=== PATIENT | male | born 1950 | race Caucasian/White ===

== ENCOUNTER 2018-09-01 20:06 | Emergency (ER) | payer MEDICARE, BC ==
[~2018-09-01] VITALS: Ht 167.6 cm; Wt 80.9 kg
[~2018-09-01 20:06] MED LIST: CENTRUM SILVER1 TA3 PO; CORDARONE200 MG/TAB PO; FLOVENT 44MCG I13 GM IH; GLUCOPHAGE XR500 M1 PO; LANOXIN 0.25M0.25 MG PO; MAREPA1200 MG PO; PROSCAR 5MG5 MG PO; PROVENTIL0.09 MG/A1 IH; SINGULAIR 110 MG/TAB PO; VASOTEC 10M10 MG/TAB PO; ZOCOR5 MG PO
[2018-09-01 20:11] VITALS: TEMP 97.6
[2018-09-01 21:32] LABS: BASO % 0.4 % (0.0-2.0); EOS # 0.1 (0.0-0.7); EOS % 0.9 % (0-4.0); GRAN # 5.3 (1.4-6.5); GRAN % 66.9 % (42.2-75.2); HEMOGLOBIN 11.1 g/dl (13.5-18.0); LYMPH # 1.6 (1.2-3.4); LYMPH % 19.9 % (20.0-51.0); MEAN CELL VOLUME 91 fl (80.0-100.0); MEAN CORPUSCULAR HEMOGLOBIN 28 pg (27.0-31.0); MEAN CORPUSCULAR HGB CONC 31 g/dl (33.0-37.0); MEAN PLATELET VOLUME 9.6 fl (7.4-10.4); MONO # 0.9 (0.1-0.6); MONO % 11.6 % (1.7-9.3); PLATELET COUNT 222 K/mm3 (130-400); RED BLOOD COUNT 3.91 M/mm3 (4.20-5.60); REDCELL DISTRIBUTION WIDTH-CV 14.6 % (11.5-14.5)
[2018-09-01 21:33] LABS: HEMATOCRIT 35.4 % (42.0-52.0)
[2018-09-01 21:37] LABS: INR 1.5 (0.8-3.0); PROTHROMBIN TIME 16.8 SECONDS (9.7-12.8)
[2018-09-01 21:46] LABS: ALBUMIN 3.9 gm/dL (3.5-5.0); BILIRUBIN,TOTAL 1.7 mg/dL (0.0-1.0); CALCIUM 8.8 mg/dL (8.4-10.2); CREATININE, serum 1.24 mg/dL (0.66-1.25); POTASSIUM 4.8 mmol/L (3.4-5.0); TOTAL PROTEIN 6.6 gm/dL (6.4-8.2)
[2018-09-01 22:12] LABS: TROPONIN-I 0.04 ng/mL (0.000-0.035)
[2018-09-01] MEDS ORDERED: COZAAR 50MG50 MG/TAB PO (22:50)
[2018-09-01 23:50] VITALS: BP 122/88; PULSE 83
== END 2018-09-01 23:50 | disposition short-term general hospital (02) ==
LOC: COL.ER 20:06
PROVIDERS: Emergency Medicine
DX: I11.0 Hypertensive heart disease with heart failure (principal); I50.9 Heart failure, unspecified; R79.89 Other specified abnormal findings of blood chemistry; I25.10 Atherosclerotic heart disease of native coronary artery without angina pectoris; I25.2 Old myocardial infarction; E11.9 Type 2 diabetes mellitus without complications; J44.9 Chronic obstructive pulmonary disease, unspecified; E78.5 Hyperlipidemia, unspecified; Z79.84 Long term (current) use of oral hypoglycemic drugs; Z95.0 Presence of cardiac pacemaker
CPT/HCPCS: J1940; J2270

== ENCOUNTER → 2018-12-25 | Outpatient (CLI) | payer MEDICARE, BC ==
[~2018-12-25] MED LIST changes: +COZAAR 50MG50 MG/TAB PO
[2018-12-25 15:38] LABS: PROTHROMBIN TIME 23.5 SECONDS (9.7-12.8)
[2018-12-25 15:46] LABS: CALCIUM 8.9 mg/dL (8.4-10.2); CREATININE, serum 1.3 (0.66-1.25)
[2018-12-25 15:55] LABS: POTASSIUM 6.3 mmol/L (3.4-5.0)
== END ==
LOC: COL.LAB 14:43
DX: Z95.811 Presence of heart assist device (principal)

== ENCOUNTER → 2019-02-08 | Outpatient (CLI) | payer MEDICARE, BC | LOC: COL.VAS 12:31 | DX: M79.89 Other specified soft tissue disorders (principal) ==

== ENCOUNTER 2019-02-12 15:33 | Outpatient (RCR) | payer MEDICARE, BC | END 2019-02-13 | disposition still patient (30) | LOC: COL.CR | DX: Z48.812 Encounter for surgical aftercare following surgery on the circulatory system (principal); Z95.811 Presence of heart assist device; I50.42 Chronic combined systolic (congestive) and diastolic (congestive) heart failure ==

== ENCOUNTER 2019-03-09 14:59 | Outpatient (RCR) | payer MEDICARE, BC ==
[~2019-03-09 14:59] MED LIST changes: -MAREPA1200 MG PO; +MASON NATURAL1200 MG PO
== END 2019-05-17 | disposition home or self-care (01) ==
LOC: COL.CR
DX: Z48.812 Encounter for surgical aftercare following surgery on the circulatory system (principal); Z95.811 Presence of heart assist device

== ENCOUNTER 2019-05-22 09:00 | Outpatient (RCR) | payer MEDICARE, BC ==
[2019-05-01 11:31] VITALS: BP 93/74; PULSE 70; TEMP 97.8
[2019-05-08 09:10] VITALS: BP 89/50; PULSE 62; TEMP 97.8
[2019-05-15 09:22] VITALS: PULSE 78; TEMP 97.8
[~2019-05-22] VITALS: Ht 167.6 cm; Wt 75.0 kg
[2019-05-22 09:30] VITALS: PULSE 83; TEMP 97.7
[2019-05-22] MEDS ORDERED: NORVASC 10MG10 MG PO (09:44)
[2019-05-22] MEDS ORDERED: ASPI325T6 PO (09:45)
[2019-05-22] MEDS ORDERED: LIPITOR 10MG10 MG PO (09:46)
[2019-05-22] MEDS ORDERED: COREG 3.123.125 MG/T PO (09:47)
[2019-05-22] MEDS ORDERED: APRESOLINE 25MG25 MG PO (09:50)
[2019-05-22] MEDS ORDERED: MAG-OX 400400 MG/TAB PO (09:51)
[2019-05-22] MEDS ORDERED: MEXITIL 150MG150 MG PO (09:53)
[2019-05-22] MEDS ORDERED: PROTONIX 40MG T40 MG PO (09:55)
[2019-05-22] MEDS ORDERED: PROZAC 10MG10 MG PO (09:56)
[2019-05-22] MEDS ORDERED: COUMADIN 6MG6 MG/TAB PO (10:01)
== END 2019-05-22 11:36 | disposition home or self-care (01) ==
LOC: EUO 09:00
DX: Z79.899 Other long term (current) drug therapy (principal)
CPT/HCPCS: J2916

== ENCOUNTER 2019-06-25 15:09 | Outpatient (RCR) | payer SELFPAY ==
[~2019-06-25 15:09] MED LIST changes: +APRESOLINE 25MG25 MG PO; +ASPI325T6 PO; +COREG 3.123.125 MG/T PO; +COUMADIN 6MG6 MG/TAB PO; +LIPITOR 10MG10 MG PO; +MAG-OX 400400 MG/TAB PO; +MEXITIL 150MG150 MG PO; +NORVASC 10MG10 MG PO; +PROTONIX 40MG T40 MG PO; +PROZAC 10MG10 MG PO
== END 2019-06-26 | disposition home or self-care (01) ==
LOC: COL.CR
DX: Z02.89 Encounter for other administrative examinations (principal)

== ENCOUNTER → 2019-10-19 | Outpatient (CLI) | payer MEDICARE, BC ==
[2019-10-19 16:33] LABS: BASO % 0.5 % (0.0-2.0); EOS # 0.3 (0.0-0.7); EOS % 4.8 % (0-4.0); GRAN # 3.7 (1.4-6.5); GRAN % 62.5 % (42.2-75.2); HEMATOCRIT 39.6 % (42.0-52.0); HEMOGLOBIN 12.9 g/dl (13.5-18.0); LYMPH # 1.2 (1.2-3.4); LYMPH % 20.2 % (20.0-51.0); MEAN CELL VOLUME 93 fl (80.0-100.0); MEAN CORPUSCULAR HEMOGLOBIN 30 pg (27.0-31.0); MEAN CORPUSCULAR HGB CONC 33 g/dl (33.0-37.0); MEAN PLATELET VOLUME 9.1 fl (7.4-10.4); MONO # 0.7 (0.1-0.6); MONO % 11.7 % (1.7-9.3); PLATELET COUNT 162 K/mm3 (130-400); RED BLOOD COUNT 4.27 M/mm3 (4.20-5.60); REDCELL DISTRIBUTION WIDTH-CV 13.5 % (11.5-14.5)
[2019-10-19 16:35] LABS: INR 2.4 (0.8-3.0); PROTHROMBIN TIME 28.4 SECONDS (9.7-12.8)
[2019-10-19 16:42] LABS: CALCIUM 9.3 mg/dL (8.4-10.2); CREATININE, serum 0.81 (0.66-1.25); MAGNESIUM 2.1 mg/dL (1.6-2.3); POTASSIUM 4.7 mmol/L (3.4-5.0)
== END ==
LOC: COL.LAB 15:54
DX: Z95.811 Presence of heart assist device (principal)

== ENCOUNTER → 2020-01-14 | Outpatient (CLI) | payer MEDICARE, BC ==
[2020-01-14 13:41] LABS: BASO % 0.5 % (0.0-2.0); EOS # 0.3 (0.0-0.7); EOS % 4.6 % (0-4.0); GRAN # 4.9 (1.4-6.5); HEMATOCRIT 43.9 % (42.0-52.0); HEMOGLOBIN 14.2 g/dl (13.5-18.0); LYMPH # 1.3 (1.2-3.4); LYMPH % 17.7 % (20.0-51.0); MEAN CELL VOLUME 92 fl (80.0-100.0); MEAN CORPUSCULAR HEMOGLOBIN 30 pg (27.0-31.0); MEAN CORPUSCULAR HGB CONC 32 g/dl (33.0-37.0); MEAN PLATELET VOLUME 8.9 fl (7.4-10.4); MONO # 0.8 (0.1-0.6); MONO % 10.9 % (1.7-9.3); PLATELET COUNT 154 K/mm3 (130-400); RED BLOOD COUNT 4.78 M/mm3 (4.20-5.60)
[2020-01-14 13:46] LABS: INR 2.5 (0.8-3.0)
[2020-01-14 13:52] LABS: CALCIUM 9.9 mg/dL (8.4-10.2); CREATININE, serum 0.94 (0.66-1.25); MAGNESIUM 2.2 mg/dL (1.6-2.3)
== END ==
LOC: COL.LAB 11:55
DX: Z95.811 Presence of heart assist device (principal)

== ENCOUNTER → 2020-03-09 | Outpatient (CLI) | payer MEDICARE, BC ==
[2020-03-09 14:20] LABS: HEMATOCRIT 43.3 % (42.0-52.0); MEAN CELL VOLUME 92 fl (80.0-100.0); MEAN CORPUSCULAR HEMOGLOBIN 30 pg (27.0-31.0); MEAN CORPUSCULAR HGB CONC 32 g/dl (33.0-37.0); MEAN PLATELET VOLUME 9.3 fl (7.4-10.4); PLATELET COUNT 158 K/mm3 (130-400); REDCELL DISTRIBUTION WIDTH-CV 13.4 % (11.5-14.5)
[2020-03-09 14:29] LABS: ALBUMIN 4.5 gm/dL (3.5-5.0); BILIRUBIN,TOTAL 0.9 mg/dL (0.0-1.0); CALCIUM 9.6 mg/dL (8.4-10.2); CREATININE, serum 0.98 (0.66-1.25); POTASSIUM 4.8 mmol/L (3.4-5.0); TOTAL PROTEIN 7.3 gm/dL (6.4-8.2)
== END ==
LOC: COL.LAB 14:00
DX: Z95.811 Presence of heart assist device (principal)

== ENCOUNTER 2020-04-09 14:51 | Outpatient (RCR) | payer SELFPAY | END 2020-04-10 | disposition home or self-care (01) | LOC: COL.CR | DX: Z02.89 Encounter for other administrative examinations (principal) ==

== ENCOUNTER 2020-06-26 16:00 | Outpatient (RCR) | payer MEDICARE, BC ==
[2020-06-16 17:29] VITALS: BP 95/72; PULSE 69; TEMP 97.7
[2020-06-19 08:00] VITALS: BP 103/72; PULSE 71; TEMP 98
[~2020-06-26] VITALS: Ht 167.6 cm; Wt 78.9 kg
--- NOTE | 2020-06-26 16:42 | NUR ---
Attempt to reach pt at phone number listed in chart, no answer and voicemail box is full.
--- NOTE | 2020-06-26 16:52 | NUR ---
[place]ifton RN at pt's PCP office contacted to inform her that pt has not shown for last 2 appts for iron infusions. She states she was told pt wished to stop infusions due to possible reaction to medication, and that he would be in contact with [facility].
== END 2020-06-26 17:08 ==
LOC: EUO 16:00
DX: D50.9 Iron deficiency anemia, unspecified (principal)
CPT/HCPCS: J2916

== ENCOUNTER → 2020-07-14 | Outpatient (RCR) | payer SELFPAY | END | disposition home or self-care (01) | LOC: COL.CR | DX: Z02.89 Encounter for other administrative examinations (principal) ==

== ENCOUNTER 2020-09-17 12:28 | Outpatient (RCR) | payer SELFPAY | END 2020-10-14 | disposition home or self-care (01) | LOC: COL.CR | DX: Z02.89 Encounter for other administrative examinations (principal) ==

== ENCOUNTER → 2020-11-26 | Outpatient (CLI) | payer MEDICARE, BC ==
[2020-11-26 11:27] LABS: BASO % 0.6 % (0.0-2.0); EOS # 0.2 (0.0-0.7); EOS % 3.6 % (0-4.0); GRAN % 73.9 % (42.2-75.2); HEMOGLOBIN 13.3 g/dl (13.5-18.0); LYMPH # 0.8 (1.2-3.4); LYMPH % 12.5 % (20.0-51.0); MEAN CELL VOLUME 95 fl (80.0-100.0); MEAN CORPUSCULAR HEMOGLOBIN 30 pg (27.0-31.0); MEAN CORPUSCULAR HGB CONC 32 g/dl (33.0-37.0); MEAN PLATELET VOLUME 8.9 fl (7.4-10.4); MONO # 0.6 (0.1-0.6); PLATELET COUNT 153 K/mm3 (130-400); RED BLOOD COUNT 4.42 M/mm3 (4.20-5.60); REDCELL DISTRIBUTION WIDTH-CV 13.3 % (11.5-14.5)
[2020-11-26 11:34] LABS: INR 2.8 (0.8-3.0); PROTHROMBIN TIME 31.9 SECONDS (9.7-12.8)
[2020-11-26 11:39] LABS: CREATININE, serum 1.09 (0.66-1.25); POTASSIUM 4.5 mmol/L (3.4-5.0)
== END ==
LOC: COL.LAB 10:49
DX: Z95.811 Presence of heart assist device (principal)

== ENCOUNTER 2021-01-14 15:58 | Outpatient (RCR) | payer SELFPAY | END 2021-01-15 | disposition home or self-care (01) | LOC: COL.CR | DX: Z02.89 Encounter for other administrative examinations (principal) ==

== ENCOUNTER → 2021-01-14 | Outpatient (CLI) | payer MEDICARE, BC | LOC: ZCOL.LAB 13:35 | DX: Z95.811 Presence of heart assist device (principal) ==

== ENCOUNTER 2021-09-21 14:56 | Outpatient (RCR) | payer SELFPAY | END 2021-09-24 | LOC: COL.CR | DX: Z29.8 Encounter for other specified prophylactic measures (principal) ==

== ENCOUNTER 2021-10-23 16:00 | Outpatient (RCR) | payer SELFPAY | END 2021-10-24 | LOC: COL.CR | DX: Z29.8 Encounter for other specified prophylactic measures (principal) ==

== ENCOUNTER 2021-11-18 11:51 | Outpatient (RCR) | payer SELFPAY | END 2021-11-24 | LOC: COL.CR | DX: Z29.8 Encounter for other specified prophylactic measures (principal) ==

== ENCOUNTER 2021-12-23 14:56 | Outpatient (RCR) | payer SELFPAY | END 2021-12-24 | LOC: COL.CR | DX: Z29.8 Encounter for other specified prophylactic measures (principal) ==

== ENCOUNTER 2022-01-15 15:16 | Outpatient (RCR) | payer SELFPAY | END 2022-01-24 | LOC: COL.CR | DX: Z29.8 Encounter for other specified prophylactic measures (principal) ==

== ENCOUNTER → 2022-02-24 | Outpatient (RCR) | payer SELFPAY | LOC: COL.CR | DX: Z29.8 Encounter for other specified prophylactic measures (principal) ==

== ENCOUNTER 2022-09-23 11:00 | Outpatient (RCR) | payer MEDICARE, BC ==
[2022-09-16 11:59] VITALS: BP 97/66; PULSE 71; TEMP 97.6
--- NOTE | 2022-09-16 13:30 | NUR ---
PT STAYED FOR 30 MINUTES POST INFUSION TO MONITOR FOR REACTION. PT STATES HE FEELS GREAT. NO CONCERNS, IV DC'D
[~2022-09-23] VITALS: Ht 167.6 cm; Wt 76.8 kg
[~2022-09-23 11:00] MED LIST changes: +ANTIVERT 25MG25 MG PO; -APRESOLINE 25MG25 MG PO; -COREG 3.123.125 MG/T PO; +COREG12.5 MG PO; +FARXIGA10 PO; +HYDRALAZINE HC100 MG PO
[2022-09-23 11:20] VITALS: BP 98/64; PULSE 75; TEMP 98
--- NOTE | 2022-09-23 13:16 | NUR ---
pt discharged at approx 1315. he ambulated independently to the main lobby. he tolerated his infusion well and his VS remained within normal limits. he tolerated po fluids during his infusion. pt was free from complaints or concerns at time of discharge.
== END 2022-09-24 | disposition still patient (30) ==
LOC: EUO
DX: Z51.81 Encounter for therapeutic drug level monitoring (principal)
CPT/HCPCS: J1756; J7050

== ENCOUNTER 2022-09-30 11:26 | Outpatient (RCR) | payer MEDICARE, BC ==
[~2022-09-30] VITALS: Ht 167.6 cm; Wt 76.8 kg
== END 2022-09-30 13:00 | disposition home or self-care (01) ==
LOC: EUO 11:26
DX: Z51.81 Encounter for therapeutic drug level monitoring (principal); Z79.899 Other long term (current) drug therapy
CPT/HCPCS: J1756; J7050

== ENCOUNTER → 2022-10-13 | Outpatient (CLI) | payer MEDICARE, BC ==
[2022-10-13 13:00] LABS: BILIRUBIN,DIRECT 0.3 mg/dL (0.0-0.5); BILIRUBIN,TOTAL 0.6 mg/dL (0.2-1.2); TOTAL PROTEIN 6.4 gm/dL (6.2-8.1)
== END ==
LOC: COL.LAB 11:55
DX: Z95.811 Presence of heart assist device (principal)